=== PATIENT | male | born 1995 | race Caucasian/White ===

== ENCOUNTER → 2017-02-02 | Outpatient (CLI) | payer OTHER ==
[~2017-02-02] MED LIST: IOPAMIDOL (ISOVUE 370) 100 ML BTL IV ONE
== END ==
LOC: FIMAGING 07:49
PROVIDERS: ATTEND Internal Medicine Interventional Cardiology
DX: I25.41 Coronary artery aneurysm (principal); M30.3 Mucocutaneous lymph node syndrome [Kawasaki]
CPT/HCPCS: Q9967

== ENCOUNTER 2017-09-11 19:57 | Emergency (ER) | payer OTHER ==
--- NOTE | 2017-09-11 20:10 | EDPHY ---
H & P Stated Complaint: Chest pain, taking preworkout, increasing workout cardiac hx Time Seen by Provider: 09/11/17 20:09 - Personal History Current Tetanus Diphtheria and Acellular Pertussis (TDAP): Yes - Medical/Surgical History Hx Asthma: No Hx Chronic Respiratory Disease: No Hx Diabetes: No Hx Cardiac Disease: Yes Hx Renal Disease: No Hx Cirrhosis: No Hx Alcoholism: No Hx HIV/AIDS: No Hx Splenectomy or Spleen Trauma: No Other PMH: coronary ansyersyum (~1997) - Social History Smoking Status: Never smoked Constitutional: Initial Vital Signs Temperature (C) 36.9 C 09/11/17 20:03 Heart Rate 81 09/11/17 20:03 Respiratory Rate 18 09/11/17 20:03 Blood Pressure 149/87 H 09/11/17 20:03 O2 Sat (%) 97 09/11/17 20:03 O2 Delivery Mode Room Air Allergies/Adverse Reactions: No Known Allergies Allergy (Unverified 09/11/17 20:03) Home Medications: Medication Instructions Recorded Aspirin 09/11/17 Coumadin 09/11/17 Medical Decision Making - Diagnostics Imaging: I viewed and interpreted images myself ED Course/Re-evaluation: CHIEF COMPLAINT: Chest pain HISTORY OF PRESENT ILLNESS: The patient is an anticoagulated (Coumadin and Aspirin) 22 y/o male with a history of Kawasaki's and LAD coronary aneurysm complaining of chest pain radiating to his back. Fort the last several weeks he has been increasing his pre-workout supplements, which include caffeine, and increasing his cardio workouts. He has been using the pre-workout for 3 years while lifting weights and did cross country in high school. While doing cardio recently he becomes short of breath and the chest pain radiates into his neck and back. Denies checking his PT for Coumadin recently. Denies headache, abdominal pain, vomiting , nausea, urinary or bowel complaints, numbness, paresthesias, fever. Followed by Dr. Hooker, pharmaceutical laboratory technician, who last saw him in March 2017. In January 2018 he had a chest CT which revealed a mid LAD coronary artery aneurysm with perforating branches and a diagonal; there is normal coronary anatomy and widely patent coronary arteries. REVIEW OF SYSTEMS: A 10 point review of systems was performed and is negative with the exception of the elements mentioned in the history of present illness. PHYSICAL EXAM: HR, BP, O2 Sat, RR. Temp noted General Appearance: Alert, well hydrated, appropriate, and non-toxic appearing. Head: Atraumatic without scalp tenderness or obvious injury Eyes: Pupils equal, round, reactive to light and accommodation, EOMI, no trauma , no injection. Ears: Clear bilaterally, no perforation, normal landmarks Nose: Atraumatic, no rhinorrhea, clear. Throat: There is no erythema or exudates, no lesions, normal tonsils, mucus membranes moist. Neck: Supple, nontender, no lymphadenopathy. Respiratory: No retractions, no distress, no wheezes, and no accessory muscle use. Lungs are clear to auscultation bilaterally. Cardiovascular: Regular rate and rhythm, no murmurs, rubs, or gallops. Bilateral carotid, radial, dorsalis pedis, and posterior tibial pulses intact. Good capillary refill all extremities. Gastrointestinal: Abdomen is soft, nontender, non-distended, no masses, no rebound, no guarding, no peritoneal signs. Musculoskeletal: Normal active ROM of all extremities, atraumatic. Neurological: Alert, appropriate, and interactive. Nonfocal neuro. Skin: No rashes, good turgor, no nodules on palpation. 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 See hard copy and/or "tracemaster" electronic copy for interpretation. Chest x-ray: No acute findings. DIFFERENTIAL DIAGNOSIS: The differential diagnosis for the patient's chest pain included but was not limited to myocardial ischemia, pulmonary embolus, chest wall pain, pleural inflammation, and pulmonary infectious causes. MEDICAL DECISION MAKING: The patient is an anticoagulated (Coumadin and Aspirin) 22 y/o male with a history of Kawasaki's and LAD coronary aneurysm complaining of chest pain radiating to his back after increasing his cardio workout. His physical exam is normal. Labs, EKG, and chest x-ray ordered. 2010: I interpreted EKG as sinus rhythm with a rate of 79. 2027: Patient's troponin is negative. 2031: I consulted with Dr. Steward, pharmaceutical laboratory technician, regarding this patient. The patient will not need a chest CTA. He will need to follow up with Dr. Hooker on . 2034: Patient's labs are normal and he is therapeutic on his Coumadin. 2039: Reassessed patient and discussed laboratory and imaging findings. I have advised him to follow up with his pharmaceutical laboratory technician on without fail. During this cardiology visit I have also advised him to discuss changing his anticoagulant to Eliquis. Return precautions provided; patient is comfortable with this plan 2048: Dr. Steward reports that Dr. Hooker agrees to see this patient on . I have discussed this with the patient. - Data Points Laboratory Results: Laboratory Results 09/11/17 20:15 09/11/17 20:15 09/11/17 09/11/17 09/11/17 20:19 20:15 20:15 WBC RBC Hgb Hct MCV MCH MCHC RDW Plt Count MPV Neut % (Auto) Lymph % (Auto) Garza % (Auto) Eos % (Auto) Baso % (Auto) Nucleat RBC Rel Count Absolute Neuts (auto) Absolute Lymphs (auto) Absolute Monos (auto) Absolute Eos (auto) Absolute Basos (auto) Absolute Nucleated RBC Immature Gran % Immature Gran # PT 25.1 SEC H SEC (12.0-15.0) INR 2.28 H (0.83-1.16) APTT 38.5 SEC H SEC (23.0-38.0) Sodium 140 mEq/L mEq/L (135-145) Potassium 3.8 mEq/L mEq/L (3.3-5.0) Chloride 101 mEq/L mEq/L (97-110) Carbon Dioxide 27 mEq/l mEq/l (22-31) Anion Gap 12 mEq/L mEq/L (8-16) BUN 27 mg/dL H mg/dL (7-23) Creatinine 1.0 mg/dL mg/dL (0.7-1.3) Estimated GFR > 60 Glucose 86 mg/dL mg/dL (70-100) Calcium 9.3 mg/dL mg/dL (8.5-10.4) POC Troponin I 0.01 ng/mL ng/mL (0.00-0.08) 09/11/17 20:15 WBC 9.69 10^3/uL H 10^3/uL (3.80-9.50) RBC 5.06 10^6/uL 10^6/uL (4.40-6.38) Hgb 16.8 g/dL g/dL (13.7-17.5) Hct 47.6 % % (40.0-51.0) MCV 94.1 fL fL (81.5-99.8) MCH 33.2 pg pg (27.9-34.1) MCHC 35.3 g/dL g/dL (32.4-36.7) RDW 12.7 % % (11.5-15.2) Plt Count 165 10^3/uL 10^3/uL (150-400) MPV 11.0 fL fL (8.7-11.7) Neut % (Auto) 67.5 % % (39.3-74.2) Lymph % (Auto) 24.6 % % (15.0-45.0) Garza % (Auto) 5.8 % % (4.5-13.0) Eos % (Auto) 1.4 % % (0.6-7.6) Baso % (Auto) 0.6 % % (0.3-1.7) Nucleat RBC Rel Count 0.0 % % (0.0-0.2) Absolute Neuts (auto) 6.54 10^3/uL H 10^3/uL (1.70-6.50) Absolute Lymphs (auto) 2.38 10^3/uL 10^3/uL (1.00-3.00) Absolute Monos (auto) 0.56 10^3/uL 10^3/uL (0.30-0.80) Absolute Eos (auto) 0.14 10^3/uL 10^3/uL (0.03-0.40) Absolute Basos (auto) 0.06 10^3/uL 10^3/uL (0.02-0.10) Absolute Nucleated RBC 0.00 10^3/uL 10^3/uL (0-0.01) Immature Gran % 0.1 % % (0.0-1.1) Immature Gran # 0.01 10^3/uL 10^3/uL (0.00-0.10) PT INR APTT Sodium Potassium Chloride Carbon Dioxide Anion Gap BUN Creatinine Estimated GFR Glucose Calcium POC Troponin I Point of Care Test Results: Chemistry 09/11/17 20:19 POC Troponin I 0.01 ng/mL ng/mL (0.00-0.08) Departure - Departure Disposition: Home, Routine, Self-Care Clinical Impression: Chest pain Qualifiers: Chest pain type: other chest pain Qualified Code(s): R07.89 - Other chest pain Condition: Good Instructions: Chest Pain (ED) Additional Instructions: 1. Follow up with your pharmaceutical laboratory technician on . Make sure to call them. 2. Talk to your pharmaceutical laboratory technician about changing your anticoagulant to Eliquis. 3. Return to the Emergency Department for fever, chest pain, shortness of breath , increasing pain or other worsening of condition. Referrals: Chasity Flood MD [Primary Care Provider] - As per Instructions Igor Hooker MD [Medical Doctor] - As per Instructions Report Scribed for: Anthony Durant Report Scribed by: Araceli Del Real Date of Report: 09/11/17 Time of Report: 20:10
--- NOTE | 2017-09-11 20:13 | CPEKG ---
Heart Rate: 79 RR Interval: 759 P-R Interval: 156 QRSD Interval: 90 QT Interval: 356 QTC Interval: 409 P Winger: 62 QRS Winger: 32 T Wave Winger: 49 EKG Severity - NORMAL ECG - EKG Impression: SINUS RHYTHM Electronically Signed By: Naveen Farmer 12-Sep-2017 07:43:00
[2017-09-11 20:27] LABS: PLATELET COUNT 165 10^3/uL (150-400)
[2017-09-11 20:33] LABS: INR 2.28 (0.83-1.16); PROTIME(PATIENT) 25.1 SEC (12.0-15.0)
[2017-09-11 20:52] VITALS: BP 136/59
== END 2017-09-11 20:52 | disposition home or self-care (01) ==
DX: R07.89 Other chest pain (principal); Z79.01 Long term (current) use of anticoagulants; Z79.82 Long term (current) use of aspirin
CPT/HCPCS: 84484-PO